=== PATIENT | male | born 1945 | race Caucasian/White ===

== ENCOUNTER 2020-10-05 20:55 | Emergency (ER) | payer BC ==
[~2020-10-05] VITALS: Ht 175.3 cm; Wt 81.6 kg
[2020-10-05 20:56] VITALS: BP_SYST 154
--- NOTE | 2020-10-05 21:02 | NUR ---
Patient to ER bed 03 to gown for evaluation. Side rails up.
--- NOTE | 2020-10-05 21:05 | NUR ---
DR. BACA AT BEDSIDE TO EVALUATE PT STATUS
--- NOTE | 2020-10-05 21:10 | NUR ---
PT AAO AND AMBULATORY REPORTING BLOOD IN URINE X 3 HOURS WITH HISTORY OF PROSTATE ABNORMALITIES AND HTN. PT REPORTS CURRENT PAIN LEVEL 9/10 ON PAIN SCALE.
--- NOTE | 2020-10-05 21:13 | NUR ---
URINE SPECIMEN OBTAINED AND URINE IS NOTED TO BE LIGHT RED IN COLOR AND CLOUDY. PT WAS ONLY ABLE TO PROVIDE A SCANT AMOUNT.
--- NOTE | 2020-10-05 21:20 | NUR ---
LAB AT BEDSIDE TO DRAW BLOOD FOR ANALYSIS
[2020-10-05 21:49] LABS: BILIRUBIN,URINE NEGATIVE (NEGATIVE); BLOOD, URINE 3+ (NEGATIVE); CLARITY/URINE CLOUDY (CLEAR); COLOR,URINE RED (YELLOW); GLUCOSE,URINE NEGATIVE (NEGATIVE); KETONES,URINE NEGATIVE (NEGATIVE); LEUKOCYTE ESTERASE ,URINE 2+ (NEGATIVE); NITRITE, URINE NEGATIVE (NEGATIVE); PH,URINE 6.5 (5.0-8.0); PROTEIN URINE 3+ (NEGATIVE); UROBILINOGEN,URINE 0.2 (0.2-1.0)
[2020-10-05 22:03] LABS: ANION GAP 10 (5-15); CHLORIDE 103 mmol/L (98-107); CREATININE 0.87 mg/dL (0.55-1.30); GLUCOSE 121 mg/dL (70-99); POTASSIUM 3.9 mmol/L (3.5-5.1); SODIUM SERUM 138 mmol/L (136-145); UREA NITROGEN, BLOOD 19 mg/dL (8-21)
[2020-10-05 22:04] LABS: BASOPHILS # (AUTO) 0.1 K/uL (0.0-0.2); BASOPHILS % (AUTO) 0.9 % (0.0-2.0); EOSINOPHILS # (AUTO) 0.1 K/uL (0.0-0.4); HEMATOCRIT 43.4 % (36-54); HEMOGLOBIN 14.6 g/dL (14.0-18.0); LYMPHOCYTES # (AUTO) 3.3 K/uL (1.0-5.5); MEAN CORPUSCULAR HEMOGLOBIN 31 pg (27-31); MEAN CORPUSCULAR HGB CONC 34 % (32-36); MEAN CORPUSCULAR VOLUME 92 fL (79.0-98.0); MONOCYTES # (AUTO) 0.7 K/uL (0.0-1.0); MONOCYTES % (AUTO) 5.8 % (1.7-9.3); NEUTROPHILS # (AUTO) 8.3 K/uL (1.8-7.7); NEUTROPHILS % (AUTO) 66.3 % (40.0-70.0); PLATELET COUNT (AUTO) 199 K/uL (130-430); RED BLOOD CELL COUNT(AUTO) 4.74 MIL/uL (4.2-6.2); RED CELL DISTRIBUTION WIDTH 13.9 % (9.0-15.0); WHITE BLOOD COUNT (AUTO) 12.5 K/uL (4.8-10.8)
[2020-10-05 22:05] LABS: BACTERIA,URINE FEW /HPF (None Seen); RBC,URINE >100 /HPF (0-3)
[2020-10-05 22:06] LABS: MUCUS,URINE None Seen /LPF (None Seen)
[2020-10-05 22:09] LABS: ALANINE AMINOTRANSFERASE 24 U/L (12-78); ALBUMIN 3.9 g/dL (3.4-4.8); AMYLASE 38 U/L (0-100); ASPARTATE AMINOTRANSFERASE 20 U/L (10-37); LIPASE 93 U/L (73-393); TOTAL BILIRUBIN 0.6 mg/dL (0.0-1.0)
--- NOTE | 2020-10-05 22:09 | NUR ---
FRANCYOGY TOOK PT TO CT SCAN W/O CONTRAST VIA WHEELCHAIR.
[2020-10-05 22:11] LABS: PROTHROMBIN TIME 9.8 SECS (9.5-12.5)
--- NOTE | 2020-10-05 22:28 | NUR ---
PT BACK FROM CT SCAN AWAITING RESULTS AND DISPOSITION.
[2020-10-05] MEDS ORDERED: NITR-85 PO (23:25)
[2020-10-05] MEDS ORDERED: IBUP-1969 PO (23:25)
[2020-10-05 23:40] VITALS: BP_SYST 115
--- NOTE | 2020-10-05 23:40 | NUR ---
Patient given written and verbal discharge instructions and verbalizes understanding. DR. PHUONG MONTERROSO MD discussed with patient the results and treatment provided. Patient in stable condition. ID arm band removed. Rx CALLED IN BY MD. Patient educated on pain management and to follow up with PMD. Pain Scale 0/10. Opportunity for questions provided and answered. Medication side effect fact sheet provided. DISCHARGE PROVIDED IN [facility] PER ER STAFF.
== END 2020-10-05 23:48 | disposition home or self-care (01) ==
LOC: SED 20:55
DX: N30.90 Cystitis, unspecified without hematuria (principal)
CPT/HCPCS: 36415; 76376; 80053; 81000-TC; 82150-TC; 83605; 83690-TC; 85025; 85610-TC; 85730-TC; 87086; 99284

== ENCOUNTER 2022-10-03 15:32 | Emergency (ER) | payer BC ==
[~2022-10-03] VITALS: Ht 177.8 cm; Wt 83.9 kg
[~2022-10-03 15:32] MED LIST: IBUP-1969 PO; NITR-85 PO
[2022-10-03 15:35] VITALS: BP_SYST 135
--- NOTE | 2022-10-03 15:40 | NUR ---
Patient triaged and placed in waiting room. VSS and patient appears in no acute distress at this time. Accompanied by SON, awaiting available bed, and MD notified of need for MSE.
--- NOTE | 2022-10-03 16:01 | NUR ---
PT STATES FREQUENT NOSE BLEEDS SINCE BEING ON BLOOD THINNER, PT STATES THAT HE PUT SOME TISSUE IN HIS NOSE AND NOW IT FEELS SWOLLEN. STATES SOMETIMES DIFF TO BREATHE OUT OF LEFT SIDE. DENIES ANY PAIN
--- NOTE | 2022-10-03 16:10 | NUR ---
DR BACA OUT TO TRIAGE ROOM TO EVALUATE PT.
[2022-10-03 16:49] LABS: BASOPHILS % (AUTO) 0.4 % (0.0-2.0); EOSINOPHILS # (AUTO) 0.1 K/uL (0.0-0.4); EOSINOPHILS % (AUTO) 1.3 % (0.0-4.0); HEMATOCRIT 39.4 % (36-54); HEMOGLOBIN 13.5 g/dL (14.0-18.0); LYMPHOCYTES # (AUTO) 2.2 K/uL (1.0-5.5); LYMPHOCYTES % (AUTO) 23.5 % (20.5-51.5); MEAN CORPUSCULAR HEMOGLOBIN 31 pg (27-31); MEAN CORPUSCULAR HGB CONC 34 % (32-36); MEAN CORPUSCULAR VOLUME 90 fL (79.0-98.0); MONOCYTES # (AUTO) 0.7 K/uL (0.0-1.0); NEUTROPHILS # (AUTO) 6.2 K/uL (1.8-7.7); NEUTROPHILS % (AUTO) 66.8 % (40.0-70.0); PLATELET COUNT (AUTO) 171 K/uL (130-430); RED CELL DISTRIBUTION WIDTH 14.2 % (9.0-15.0); WHITE BLOOD COUNT (AUTO) 9.3 K/uL (4.8-10.8)
[2022-10-03 17:07] LABS: ANION GAP 6 (5-15); CALCIUM 8.5 mg/dL (8.4-11.0); CHLORIDE 102 mmol/L (98-107); CREATININE 0.74 mg/dL (0.55-1.30); GLUCOSE 116 mg/dL (70-99); UREA NITROGEN, BLOOD 15 mg/dL (8-21)
[2022-10-03 17:09] LABS: PROTHROMBIN TIME 10.4 SECS (9.5-12.5)
[2022-10-03 17:11] LABS: ALANINE AMINOTRANSFERASE 23 U/L (12-78); ALBUMIN 3.7 g/dL (3.4-4.8); ASPARTATE AMINOTRANSFERASE 17 U/L (10-37); TOTAL BILIRUBIN 0.5 mg/dL (0.0-1.0)
[2022-10-03] MEDS ORDERED: PSEU30TA36 PO (17:30)
--- NOTE | 2022-10-03 17:33 | NUR ---
DR BACA OUT TO TRIAGE ROOM TO SPEAK WITH PT REGARDING TESTS.
--- NOTE | 2022-10-03 17:37 | NUR ---
Patient given written and verbal discharge instructions and verbalizes understanding. ER MD discussed with patient the results and treatment provided. Patient in stable condition. ID arm band removed Rx of PSEUDOEPHEDRINE given. Patient educated on pain management and to follow up with PMD. Pain Scale 0/10. Opportunity for questions provided and answered. Medication side effect fact sheet provided.
== END 2022-10-03 17:37 | disposition home or self-care (01) ==
LOC: SED 15:32
DX: R04.0 Epistaxis (principal); I10 Essential (primary) hypertension; Z79.899 Other long term (current) drug therapy
CPT/HCPCS: 36415; 80053; 85025; 85610-TC; 85730-TC; 99283

== ENCOUNTER 2023-06-27 10:27 | Emergency (ER) | payer BC ==
[~2023-06-27] VITALS: Ht 177.8 cm; Wt 85.3 kg
[~2023-06-27 10:27] MED LIST changes: +PSEU30TA36 PO
[2023-06-27 10:38] VITALS: BP_SYST 128; PULSE 71; RESP 18; TEMP 98.3; O2SAT 98
[2023-06-27] MEDS ORDERED: DOXY100C5 PO (11:37)
[2023-06-27] MEDS ORDERED: AUG875 PO (11:37)
[2023-06-27 11:52] VITALS: BP_SYST 128; PULSE 70; RESP 16; TEMP 98.3; O2SAT 96
== END 2023-06-27 11:51 | disposition home or self-care (01) ==
LOC: SED 10:27
DX: L03.012 Cellulitis of left finger (principal); M79.645 Pain in left finger(s); I10 Essential (primary) hypertension; E78.5 Hyperlipidemia, unspecified; Z79.899 Other long term (current) drug therapy
CPT/HCPCS: 73140-TC; 99283